=== PATIENT | female | born 2000 | race Caucasian/White ===

== ENCOUNTER 2018-09-20 03:11 | Emergency (ER) | payer OTHER ==
[~2018-09-20] VITALS: Ht 167.6 cm; Wt 76.7 kg
[2018-09-20] MEDS ORDERED: LORAZEPAM 0.5 MG TABLET PO ONE (03:30)
[2018-09-20] MEDS ORDERED: LORAZEPAM 1 MG TABLET ONE (03:31)
--- NOTE | 2018-09-20 03:35 | NUR ---
Patient ambulated with stable gait. Speech clear, speaks complete sentences no neuro deficits. Patient came for c/o chest pain. Denies performing any overexerting exercises that might exacerbate or mimic s/sx of chest pain. Patient reports that she has pain only upon exhalation. Denies any numbness or tingling of extremities. Pain localized and non-radiating. Denies any N/V/D. Patient in bed at lowest position, sr upx2, call light within reach. Fall precautions implemented per protocol.
[2018-09-20 03:55] VITALS: BP 110/72
--- NOTE | 2018-09-20 03:55 | NUR ---
Patient discharged to home in stable conditon. Written and verbal after care instructions given. Patient verbalizes understanding of instructions. Patient ambulated with stable gait.
== END 2018-09-20 04:13 | disposition home or self-care (01) ==
LOC: ER 03:12
DX: F41.9 Anxiety disorder, unspecified (principal)
CPT/HCPCS: 93005; A4663

== ENCOUNTER 2018-10-06 00:03 | Emergency (ER) | payer OTHER ==
[~2018-10-06] VITALS: Ht 167.6 cm; Wt 76.2 kg
--- NOTE | 2018-10-06 00:20 | NUR ---
Patient in room. Alert and oriented x4. chied omplaint of headache that has lasted for a week. Patient denies taking any medications to relieve the pain. Patient also states she has intermittent generalize pain that comes and goes. Patient is in no respiroatory distress or discomfort. Patient on monitor and vital signs are wnl.
--- NOTE | 2018-10-06 00:27 | NUR ---
seen and evaluated by Dr. Henderson.
[2018-10-06] MEDS ORDERED: ACETAMINOPHEN ES 500 MG TABLET PO ONE (00:30)
[2018-10-06] MEDS ORDERED: ACETAMINOPHEN ES 500 MG TABLET ONE (00:40)
--- NOTE | 2018-10-06 00:45 | NUR ---
patient ambulate to bathroom and able to provide urine sample.
--- NOTE | 2018-10-06 00:47 | NUR ---
patient rbought down to radiology department for CT via wheel chair.
[2018-10-06 00:48] LABS: BASOPHILS # (AUTO) 0.1 K/uL (0.0-8.0); BASOPHILS % (AUTO) 0.8 % (0.0-2.0); EOSINOPHILS # (AUTO) 0.1 K/uL (0.0-0.7); EOSINOPHILS % (AUTO) 0.8 % (0.0-7.0); HEMATOCRIT 39.7 % (31.2-41.9); HEMOGLOBIN 13.2 g/dL (10.9-14.3); LYMPHOCYTES % (AUTO) 24.6 % (20.5-74.5); MEAN CORPUSCULAR HEMOGLOBIN 27.8 uug (24.7-32.8); MEAN CORPUSCULAR HGB CONC 33 g/dL (32.3-35.6); MEAN CORPUSCULAR VOLUME 83.9 fL (75.5-95.3); MONOCYTES # (AUTO) 0.9 K/uL (2.0-10.0); MONOCYTES % (AUTO) 7.2 % (0-11); NEUTROPHILS # (AUTO) 8.2 K/uL (1.8-8.9); NEUTROPHILS % (AUTO) 66.6 % (31.5-64.5); PLATELET COUNT (AUTO) 339 K/uL (179-408); RED BLOOD CELL COUNT(AUTO) 4.73 MIL/uL (3.63-4.92); WHITE BLOOD COUNT (AUTO) 12.3 K/uL (3.8-11.8)
--- NOTE | 2018-10-06 00:49 | NUR ---
UA sample obtained and brought to lab
[2018-10-06 00:54] LABS: POTASSIUM 3.6 mmol/L (3.5-5.1)
[2018-10-06 01:00] LABS: BILIRUBIN,DIRECT 0.1 mg/dL (0.0-0.2); BILIRUBIN,TOTAL 0.3 mg/dL (0.2-1.0); TOTAL PROTEIN, SERUM 7.6 g/dL (6.4-8.2)
--- NOTE | 2018-10-06 01:02 | NUR ---
Patient returned back from CT and is in bed.
[2018-10-06 01:39] LABS: *BILIRUBIN,URIN NEGATIVE (NEGATIVE); *BLOOD, URINE NEGATIVE (NEGATIVE); *CLARITY,URINE CLEAR (CLEAR); *COLOR,URINE YELLOW (YELLOW); *KETONES,URINE NEGATIVE (NEGATIVE); *UROBILINOGEN,URINE 0.2 E.U./dl (NORMAL); LEUKOCYTE ESTERASE ,URINE NEGATIVE (NEGATIVE); NITRITE, URINE NEGATIVE (NEGATIVE); PH,URINE 5.5 (5.0-8.0); UGLUCOSE NEGATIVE (NEGATIVE)
[2018-10-06 01:48] LABS: *URINE HCG, QUAL NEGATIVE (NEGATIVE)
--- NOTE | 2018-10-06 02:00 | NUR ---
Dr. Henderson discussed results of Head CT with patient.
--- NOTE | 2018-10-06 02:15 | NUR ---
Patient discharged to home in stable conditon. Written and verbal after care instructions given. Patient verbalizes understanding of instructions.
[2018-10-06 02:32] VITALS: BP 110/70
== END 2018-10-06 02:15 | disposition home or self-care (01) ==
LOC: ER 00:07
DX: R51 Headache (principal); R42 Dizziness and giddiness
CPT/HCPCS: 36415; 70450; 84703; 85025; A4663; A9150

== ENCOUNTER 2018-11-01 14:25 | Emergency (ER) | payer OTHER ==
[~2018-11-01] VITALS: Ht 165.1 cm; Wt 75.7 kg
--- NOTE | 2018-11-01 15:11 | NUR ---
DOLORES HERRERA AT BEDSIDE FOR MSE.
[2018-11-01] MEDS ORDERED: MAG HYDROX/AL HYDROX/SIMETH 30 ML LIQUID UDC PO ONE (15:30)
[2018-11-01] MEDS ORDERED: MAGNESIUM HYDROXIDE 30 ML LIQUID UDC ONE (15:32)
[2018-11-01] MEDS ORDERED: MAG HYDROX/AL HYDROX/SIMETH 30 ML LIQUID UDC ONE (15:33)
[2018-11-01 15:35] LABS: BASOPHILS % (AUTO) 0.4 % (0.0-2.0); EOSINOPHILS # (AUTO) 0.1 K/uL (0.0-0.7); EOSINOPHILS % (AUTO) 1.1 % (0.0-7.0); HEMATOCRIT 40.6 % (31.2-41.9); HEMOGLOBIN 13.3 g/dL (10.9-14.3); LYMPHOCYTES # (AUTO) 1.9 K/uL (20.0-40.0); MEAN CORPUSCULAR HEMOGLOBIN 27.5 uug (24.7-32.8); MEAN CORPUSCULAR HGB CONC 33 g/dL (32.3-35.6); MEAN CORPUSCULAR VOLUME 83.9 fL (75.5-95.3); MONOCYTES # (AUTO) 0.6 K/uL (2.0-10.0); MONOCYTES % (AUTO) 6.4 % (0-11); NEUTROPHILS # (AUTO) 6.4 K/uL (1.8-8.9); NEUTROPHILS % (AUTO) 71.1 % (31.5-64.5); PLATELET COUNT (AUTO) 294 K/uL (179-408); RED BLOOD CELL COUNT(AUTO) 4.83 MIL/uL (3.63-4.92); WHITE BLOOD COUNT (AUTO) 9.1 K/uL (3.8-11.8)
[2018-11-01 15:45] LABS: POTASSIUM 3.8 mmol/L (3.5-5.1)
[2018-11-01 15:51] LABS: BILIRUBIN,DIRECT 0.1 mg/dL (0.0-0.2); BILIRUBIN,TOTAL 0.4 mg/dL (0.2-1.0); TOTAL PROTEIN, SERUM 7.7 g/dL (6.4-8.2)
--- NOTE | 2018-11-01 16:23 | NUR ---
Patient discharged to home in stable conditon. Written and verbal after care instructions given. Patient verbalizes understanding of instructions. ALL BELONGINGS W/ PT. PT SELF-AMBULATED W/O DIFFICULTY.
[2018-11-01 16:24] VITALS: BP 110/66
== END 2018-11-01 16:24 | disposition home or self-care (01) ==
LOC: ER 14:25
DX: F41.9 Anxiety disorder, unspecified (principal); K21.9 Gastro-esophageal reflux disease without esophagitis; R20.2 Paresthesia of skin
CPT/HCPCS: 36415; 83690; 85025; 93005; A4663